=== PATIENT | male | born 1960 | race Caucasian/White ===

== ENCOUNTER → 2018-06-05 | Outpatient (CLI) | payer OTHER ==
[~2018-06-05] MED LIST: ASPI-496 PO; CELE200C PO; CLINDAMYCIN 150 MG/ML, 6ML ONE; CYAN1TAB29 PO; MAGN100T6 PO; MULT-658 PO; NAPR220C PO; VITAMIN B6 PO; [UNRECOGNIZED DRUG - CODE] PO
== END | disposition home or self-care (01) ==
LOC: STAR 08:43
PROVIDERS: ATTEND Orthopaedic Surgery
DX: Z01.818 Encounter for other preprocedural examination (principal); M19.011 Primary osteoarthritis, right shoulder; M25.511 Pain in right shoulder
CPT/HCPCS: 93005

== ENCOUNTER 2018-06-11 05:33 | Inpatient (IN) | payer OTHER ==
[2018-06-05 09:21] VITALS: BP 160/97
[~2018-06-11] VITALS: Ht 167.6 cm; Wt 70.0 kg
[~2018-06-11 05:33] MED LIST changes: -CLINDAMYCIN 150 MG/ML, 6ML ONE
[2018-06-11] MEDS ORDERED: FENTANYL PF 100 MCG/2ML ONE ×3 (06:02→09:59)
[2018-06-11] MEDS ORDERED: MIDAZOLAM 1 MG/ML, 2ML ONE (06:02)
[2018-06-11] MEDS ORDERED: LACTATED RINGERS 1,000 ML IV SCH (06:03)
[2018-06-11] MEDS ORDERED: GLYCOPYRROLATE 0.2MG/1ML, 5ML ONE (06:04)
[2018-06-11] MEDS ORDERED: SUCCINYLCHOLINE 20 MG/ML, 10ML ONE (06:04)
[2018-06-11] MEDS ORDERED: DEXAMETHASONE 4 MG/ML, 1ML ONE (06:04)
[2018-06-11] MEDS ORDERED: PROPOFOL 10 MG/ML, 20ML ONE (06:04)
[2018-06-11] MEDS ORDERED: NEOSTIGMINE 1 MG/ML, 10ML ONE (06:04)
[2018-06-11] MEDS ORDERED: CEFAZOLIN 1,000 MG ONE (06:04)
[2018-06-11] MEDS ORDERED: ONDANSETRON 2MG/ML, 2ML ONE (06:04)
[2018-06-11] MEDS ORDERED: ROCURONIUM 10MG/ML,5ML ONE (06:04)
[2018-06-11] MEDS ORDERED: D5%-0.45% NACL 1,000 ML IV SCH (06:52)
[2018-06-11] MEDS ORDERED: LIDOCAINE 4%, 4 ML SYR/CANN TP ONE (06:55)
[2018-06-11] MEDS ORDERED: EPHEDRINE 50 MG/ML, 1ML ONE (06:55)
[2018-06-11] MEDS ORDERED: BISACODYL 10 MG SUPP PR PRN (07:00)
[2018-06-11] MEDS ORDERED: DIPHENHYDRAMINE 25 MG CAPSULE PO PRN (07:00)
[2018-06-11] MEDS ORDERED: MAGNESIUM HYDROXIDE 8%, 30ML UDC PO PRN (07:00)
[2018-06-11] MEDS ORDERED: ACETAMINOPHEN 325 MG TABLET PO PRN ×2 (07:00→07:30)
[2018-06-11] MEDS ORDERED: SENNA/DOCUSATE TABLET PO PRN (07:00)
[2018-06-11] MEDS ORDERED: ONDANSETRON 2MG/ML, 2ML IV PRN ×2 (07:00→07:30)
[2018-06-11] MEDS: HYDROcodone/APAP 10/325 MG TABLET PO SCH ×3 (07:00→16:09)
[2018-06-11] MEDS ORDERED: PROMETHAZINE 25 MG/ML, 1ML IM PRN (07:00)
[2018-06-11] MEDS ORDERED: morphine SULFATE 10 MG/ML, 1ML IV PRN (07:00)
[2018-06-11] MEDS ORDERED: OXYcodone 5 MG/5 ML ORAL.SOL UDC PO PRN (07:30)
[2018-06-11] MEDS ORDERED: HYDROmorphone 1 MG/ML, 1ML IV PRN (07:30)
[2018-06-11] MEDS ORDERED: MEPERIDINE/PF 25MG/0.5ML IVPush PRN (07:30)
[2018-06-11] MEDS ORDERED: GABAPENTIN 300 MG CAPSULE PO SCH (07:30)
[2018-06-11] MEDS ORDERED: DIAZEPAM 5 MG/ML, 2ML IVPush PRN (07:30)
[2018-06-11] MEDS ORDERED: PROCHLORPERAZINE 5 MG/ML, 2ML IM PRN (07:30)
[2018-06-11] MEDS ORDERED: ONDANSETRON ODT 8 MG PO PRN (07:30)
[2018-06-11] MEDS ORDERED: DOCUSATE 100 MG CAPSULE PO SCH (09:00)
[2018-06-11] MEDS ORDERED: OXYcodone 5 MG/5 ML ORAL.SOL UDC ONE ×2 (09:39→09:40)
[2018-06-11] MEDS ORDERED: ACETAMINOPHEN 650 MG/20.3 ML UDC ONE (09:59)
[2018-06-11] MEDS: FENTANYL PF 100 MCG/2ML IV PRN ×3 (10:00→10:20)
[2018-06-11 13:19] VITALS: BP 132/80
[2018-06-11] MEDS ORDERED: CEFAZOLIN PMX 1GM/50ML 50 ML IVPB SCH (14:00)
[2018-06-12] MEDS ORDERED: ASPIRIN 81 MG TABLET EC PO SCH (06:00)
[2018-06-12] MEDS ORDERED: MAGNESIUM OXIDE 400 MG TABLET PO SCH (09:00)
== END 2018-06-11 16:33 | disposition home or self-care (01) | DRG 483 ==
LOC: ORIP 05:33 → 4NOR 10:55
PROVIDERS: ADMIT Orthopaedic Surgery; ATTEND Orthopaedic Surgery
PROC: 0LS30ZZ Reposition Right Upper Arm Tendon, Open Approach (ICD-10-PCS; 2018-06-11)
PROC: 3E0T3BZ Introduction of Anesthetic Agent into Peripheral Nerves and Plexi, Percutaneous Approach (ICD-10-PCS; 2018-06-11)
PROC: 0RRJ0JZ Replacement of Right Shoulder Joint with Synthetic Substitute, Open Approach (ICD-10-PCS; principal; 2018-06-11 07:00)
DX: M19.011 Primary osteoarthritis, right shoulder (principal); M75.21 Bicipital tendinitis, right shoulder; M81.6 Localized osteoporosis [Lequesne]
CPT/HCPCS: 73020; J3490; S0077; C1713; C1776; G0378; J0690; J1100; J2250; J2405; J2704; J2710; J3010; J0330; J7120

== ENCOUNTER 2018-06-19 15:14 | Observation (INO) | payer OTHER ==
[~2018-06-19] VITALS: Ht 167.6 cm; Wt 71.0 kg
[2018-06-19] MEDS ORDERED: SODIUM CHLORIDE FLUSH 10ML SYR IVF ONE (16:00)
[2018-06-19 16:12] LABS: BASOPHILS # (AUTO) 0.03 x10^3/uL (0-0.1); BASOPHILS % (AUTO) 0 % (0-1); EOSINOPHILS # (AUTO) 0.17 x10^3/uL (0-0.4); EOSINOPHILS % (AUTO) 2 % (1-7); LYMPHOCYTES # (AUTO) 1.53 x10^3/uL (1-3.4); LYMPHOCYTES % (AUTO) 14 % (22-44); MD NO; MEAN CORPUSCULAR HEMOGLOBIN 29.1 pg (27.5-34.5); MEAN CORPUSCULAR HGB CONC 33.3 g/dL (33.2-36.2); MEAN CORPUSCULAR VOLUME 87.4 fL (81-97); MEAN PLATELET VOLUME 7.8 fL (7.4-10.4); MONOCYTES # (AUTO) 0.98 x10^3/uL (0.2-0.8); MONOCYTES % (AUTO) 9 % (2-9); NEUTROPHILS # (AUTO) 7.94 x10^3/uL (1.8-6.8); NEUTROPHILS % (AUTO) 75 % (42-75); PLATELET COUNT 371 x10^3/uL (130-400); RED BLOOD COUNT 4.54 x10^6/uL (4.38-5.82)
[2018-06-19 16:19] LABS: ALBUMIN 3.3 g/dL (3.4-5.0); ANION GAP 7 mmol/L (5-15); CALCIUM 9.3 mg/dL (8.5-10.1); CHLORIDE 105 mmol/L (98-107); CREATININE 0.97 mg/dL (0.7-1.3)
[2018-06-19 16:24] LABS: TROPONIN I < 0.015 ng/mL (0.000-0.045)
[2018-06-19] MEDS ORDERED: OMNIPAQUE 350 MG/ML, 100ML BOTTLE ONE (17:01)
[2018-06-19] MEDS ORDERED: HYDR-3307 PO (17:47)
[2018-06-19] MEDS ORDERED: CELE200C PO (17:47)
[2018-06-19] MEDS ORDERED: DOCUSATE 100 MG CAPSULE PO PRN (18:00)
[2018-06-19] MEDS ORDERED: POLYETHYLENE GLYCOL 17 GM PACKET PO PRN (18:00)
[2018-06-19] MEDS ORDERED: ACETAMINOPHEN 325 MG TABLET PO PRN (18:00)
[2018-06-19] MEDS ORDERED: LABETALOL 5MG/ML, 20ML IVPush PRN (18:00)
[2018-06-19] MEDS ORDERED: ENALAPRILAT 1.25 MG/ML, 2ML IVPush PRN (18:00)
[2018-06-19] MEDS ORDERED: hydrALAzine 20 MG/ML, 1ML IVPush PRN (18:00)
[2018-06-19] MEDS ORDERED: BISACODYL 10 MG SUPP PR PRN (18:00)
[2018-06-19] MEDS ORDERED: HEPARIN 25,000 UNITS/500ML PMX 500 ML ONE (18:01)
[2018-06-19] MEDS ORDERED: HEPARIN 5,000 UNITS/ML, 1ML ONE (18:01)
[2018-06-19 18:04] LABS: INTERNATIONAL NORMALIZED RATIO 0.97 (0.93-1.1); PROTHROMBIN TIME 10.3 Seconds (9.6-11.5)
[2018-06-19 18:15] LABS: FREE T4 (FREE THYROXINE) 1.16 ng/dL (0.76-1.46); THYROID STIMULATING HORMONE 0.672 mIU/L (0.358-3.740)
[2018-06-19] MEDS ORDERED: HEPARIN 5,000 UNITS/ML, 1ML IV ONE (18:30)
[2018-06-19] MEDS ORDERED: HEPARIN 25,000 UNITS/500ML PMX 500 ML IV PRN (18:30)
[2018-06-19] MEDS: FAMOTIDINE 20 MG TABLET PO SCH (20:38)
[2018-06-19] MEDS: SODIUM CHLORIDE 0.9% 1,000 ML IV SCH (20:38)
[2018-06-19] MEDS: OXYcodone IR 5MG TABLET PO PRN (20:38)
[2018-06-19 23:16] VITALS: BP 136/84
[2018-06-20] MEDS: HEPARIN 5,000 UNITS/ML, 1ML IV PRN ×2 (01:34→08:33)
[2018-06-20 01:39] VITALS: BP 133/80
[2018-06-20] MEDS: OXYcodone IR 5MG TABLET PO PRN ×3 (05:53→16:14)
[2018-06-20 06:53] VITALS: BP 122/75
[2018-06-20 07:45] LABS: BASOPHILS # (AUTO) 0.04 x10^3/uL (0-0.1); BASOPHILS % (AUTO) 1 % (0-1); EOSINOPHILS # (AUTO) 0.12 x10^3/uL (0-0.4); EOSINOPHILS % (AUTO) 1 % (1-7); LYMPHOCYTES % (AUTO) 17 % (22-44); MD NO; MEAN CORPUSCULAR HEMOGLOBIN 28.6 pg (27.5-34.5); MEAN CORPUSCULAR HGB CONC 33.1 g/dL (33.2-36.2); MEAN CORPUSCULAR VOLUME 86.2 fL (81-97); MONOCYTES # (AUTO) 0.93 x10^3/uL (0.2-0.8); MONOCYTES % (AUTO) 10 % (2-9); NEUTROPHILS # (AUTO) 6.99 x10^3/uL (1.8-6.8); NEUTROPHILS % (AUTO) 72 % (42-75); PLATELET COUNT 332 x10^3/uL (130-400); RED BLOOD COUNT 4.03 x10^6/uL (4.38-5.82); RED CELL DISTRIBUTION WIDTH 13.8 % (9.4-14.8)
[2018-06-20 07:56] LABS: ALANINE AMINOTRANSFERASE 85 U/L (12-78); ALBUMIN 2.7 g/dL (3.4-5.0); ANION GAP 6 mmol/L (5-15); CALCIUM 8.8 mg/dL (8.5-10.1); CHLORIDE 108 mmol/L (98-107); CREATININE 0.81 mg/dL (0.7-1.3)
[2018-06-20 08:00] LABS: ALKALINE PHOSPHATASE 50 U/L (45-117); BILIRUBIN,TOTAL 0.5 mg/dL (0.2-1.0); CHOL/HDL RATIO 3.3; CHOLESTEROL, TOTAL 137 mg/dL (140-239); HDL CHOL % 30 % (26-37); HDL CHOLESTEROL (DIRECT) 41 mg/dL (40-60); LDL CHOLESTEROL,CALCULATED 73 mg/dL (54-169); LDL/HDL RATIO 1.8 (0.5-3.0); TOTAL PROTEIN 6.2 g/dL (6.4-8.2); TRIGLYCERIDES 115 mg/dL (50-200); VLDL CHOLESTEROL 23 mg/dL (0-25)
[2018-06-20] MEDS: FAMOTIDINE 20 MG TABLET PO SCH ×2 (08:33→08:44)
[2018-06-20] MEDS: SODIUM CHLORIDE 0.9% 1,000 ML IV SCH (09:00)
[2018-06-20] MEDS ORDERED: SENNA/DOCUSATE TABLET PO SCH (09:00)
[2018-06-20 12:34] VITALS: BP 131/78
[2018-06-20] MEDS ORDERED: RIVAROXABAN 15 MG TABLET PO SCH (17:00)
[2018-06-20] MEDS ORDERED: RIVA15TA PO ×2 (18:35→19:25)
== END 2018-06-20 18:45 | disposition home or self-care (01) ==
LOC: ED 17:57 → EDIP 17:58 → 4EST 19:11
PROVIDERS: ADMIT Hospitalist; ATTEND Hospitalist
DX: I26.99 Other pulmonary embolism without acute cor pulmonale (principal); J90 Pleural effusion, not elsewhere classified; Z80.9 Family history of malignant neoplasm, unspecified; Z96.611 Presence of right artificial shoulder joint
CPT/HCPCS: 36415; 71275; 80048; 80053; 80061; 82040; 83735; 84100; 84439; 84443; 84484; 85025; 85520; 85610; 93005; 93306; 93970; 96374; 96376; 99291; G0378; J1644; J7030; Q9967

== ENCOUNTER 2018-12-31 10:32 | Inpatient (IN) | payer OTHER ==
[~2018-12-31] VITALS: Ht 167.6 cm; Wt 68.0 kg
[~2018-12-31 10:32] MED LIST changes: +ACET325T14 PO; +BUPIVACAINE LIPOSOME/PF 10ML INFIL ONE; +CLINDAMYCIN 150 MG/ML, 6ML ONE; +DIPH25TA50 PO; +FENTANYL PF 100 MCG/2ML ONE; +HYDR-3307 PO; +MIDAZOLAM 1 MG/ML, 2ML ONE; +NAPR-816 PO; -NAPR220C PO; +NAPR220C62 PO; +RIVA15TA PO
[2018-12-31] MEDS ORDERED: BUPIVACAINE/PF 0.25% ONE (10:34)
[2018-12-31] MEDS ORDERED: LIDOCAINE-MPF 2% ,5ML ONE (10:35)
[2018-12-31] MEDS ORDERED: LACTATED RINGERS 1,000 ML IV SCH (10:55)
[2018-12-31] MEDS ORDERED: D5%-0.45% NACL 1,000 ML IV SCH (11:46)
[2018-12-31] MEDS ORDERED: morphine SULFATE 10 MG/ML, 1ML IV PRN (12:00)
[2018-12-31] MEDS ORDERED: DIPHENHYDRAMINE 25 MG CAPSULE PO PRN (12:00)
[2018-12-31] MEDS ORDERED: PROMETHAZINE 25 MG/ML, 1ML IM PRN (12:00)
[2018-12-31] MEDS ORDERED: ACETAMINOPHEN 325 MG TABLET PO PRN ×2 (12:00→14:00)
[2018-12-31] MEDS ORDERED: ONDANSETRON 2MG/ML, 2ML IV PRN ×2 (12:00→14:00)
[2018-12-31] MEDS ORDERED: KETOROLAC 30 MG/1 ML IV SCH (12:00)
[2018-12-31] MEDS ORDERED: CEFAZOLIN PMX 1GM/50ML 50 ML IVPB SCH ×2 (12:00→20:30)
[2018-12-31] MEDS ORDERED: METOCLOPRAMIDE 5 MG/ML, 2ML ONE (12:29)
[2018-12-31] MEDS ORDERED: SCOPOLAMINE PATCH, 1.5MG PATCH.TD72 TD ONE (12:36)
[2018-12-31] MEDS ORDERED: METOPROLOL 1 MG/ML, 5ML IV PRN (14:00)
[2018-12-31] MEDS ORDERED: MIDAZOLAM 1 MG/ML, 2ML IV PRN (14:00)
[2018-12-31] MEDS ORDERED: PROMETHAZINE 25 MG/ML, 1ML IV PRN (14:00)
[2018-12-31] MEDS ORDERED: FENTANYL PF 100 MCG/2ML IV PRN (14:00)
[2018-12-31] MEDS ORDERED: ALBUTEROL/IPRATROPIUM 2.5MG/0.5MG, 3 ML NPPB PRN (14:00)
[2018-12-31] MEDS ORDERED: OXYcodone 5 MG/5 ML ORAL.SOL UDC PO PRN (14:00)
[2018-12-31] MEDS ORDERED: hydrALAzine 20 MG/ML, 1ML IV PRN (14:00)
[2018-12-31] MEDS ORDERED: MEPERIDINE/PF 25MG/0.5ML IVPush PRN (14:00)
[2018-12-31] MEDS ORDERED: KETOROLAC 30 MG/1 ML IV PRN (14:00)
[2018-12-31] MEDS ORDERED: HYDROmorphone 2 MG/ML, 1ML IVPush PRN (14:00)
[2018-12-31] MEDS ORDERED: DEXAMETHASONE 4 MG/ML, 1ML ONE (14:07)
[2018-12-31] MEDS ORDERED: ONDANSETRON 2MG/ML, 2ML ONE (14:07)
[2018-12-31] MEDS ORDERED: ROCURONIUM 10MG/ML,5ML ONE (14:07)
[2018-12-31] MEDS ORDERED: GLYCOPYRROLATE 0.2MG/1ML, 5ML ONE (14:07)
[2018-12-31] MEDS ORDERED: PROPOFOL 10 MG/ML, 20ML ONE (14:07)
[2018-12-31] MEDS ORDERED: NEOSTIGMINE 1 MG/ML, 10ML ONE (14:07)
[2018-12-31] MEDS ORDERED: CEFAZOLIN 1,000 MG ONE (14:07)
[2018-12-31] MEDS ORDERED: OXYcodone 5 MG/5 ML ORAL.SOL UDC ONE (14:58)
[2018-12-31] MEDS ORDERED: OXYcodone IR 5MG TABLET PO SCH (15:00)
[2018-12-31 15:35] VITALS: BP 144/89
[2018-12-31 18:00] VITALS: BP 133/79
[2018-12-31] MEDS ORDERED: DOCUSATE 100 MG CAPSULE PO SCH (21:00)
[2018-12-31] MEDS ORDERED: RIVAROXABAN 10 MG TABLET PO SCH (21:00)
== END 2018-12-31 18:30 | disposition home or self-care (01) | DRG 483 ==
LOC: ORIP 10:32 → 4NOR 15:30
PROVIDERS: ADMIT Orthopaedic Surgery; ATTEND Orthopaedic Surgery
PROC: 0LS40ZZ Reposition Left Upper Arm Tendon, Open Approach (ICD-10-PCS; 2018-12-31)
PROC: 3E0T3BZ Introduction of Anesthetic Agent into Peripheral Nerves and Plexi, Percutaneous Approach (ICD-10-PCS; 2018-12-31)
PROC: 3E0T33Z Introduction of Anti-inflammatory into Peripheral Nerves and Plexi, Percutaneous Approach (ICD-10-PCS; 2018-12-31)
PROC: 0RRK0JZ Replacement of Left Shoulder Joint with Synthetic Substitute, Open Approach (ICD-10-PCS; principal; 2018-12-31 13:00)
DX: M19.012 Primary osteoarthritis, left shoulder (principal); M65.812 Other synovitis and tenosynovitis, left shoulder; M75.22 Bicipital tendinitis, left shoulder; M25.712 Osteophyte, left shoulder; Z79.899 Other long term (current) drug therapy
CPT/HCPCS: 73020; J3490; S0077; 93005; C1713; C1776; G0378; J0690; J1100; J2250; J2405; J2704; J2710; J3010; J2765; J7120

== ENCOUNTER 2021-03-06 15:47 | Emergency (ER) | payer OTHER ==
[~2021-03-06] VITALS: Ht 167.6 cm; Wt 69.2 kg
[~2021-03-06 15:47] MED LIST changes: -BUPIVACAINE LIPOSOME/PF 10ML INFIL ONE; -CLINDAMYCIN 150 MG/ML, 6ML ONE; -FENTANYL PF 100 MCG/2ML ONE; +HYDR-3248 PO; -HYDR-3307 PO; -MIDAZOLAM 1 MG/ML, 2ML ONE
[2021-03-06 17:04] LABS: BASOPHILS % (AUTO) 1 % (0-1); EOSINOPHILS % (AUTO) 2 % (1-7); LYMPHOCYTES % (AUTO) 21 % (22-44); MEAN CORPUSCULAR HEMOGLOBIN 28.9 pg (27.5-34.5); MEAN CORPUSCULAR HGB CONC 33.1 g/dL (33.2-36.2); MEAN PLATELET VOLUME 8.4 fL (7.4-10.4); MONOCYTES % (AUTO) 10 % (2-9); NEUTROPHILS % (AUTO) 66 % (42-75); PLATELET COUNT 266 x10^3/uL (130-400); RED BLOOD COUNT 5.24 x10^6/uL (4.38-5.82); RED CELL DISTRIBUTION WIDTH 15.3 % (9.4-14.8)
[2021-03-06 17:14] LABS: ALANINE AMINOTRANSFERASE 25 U/L (12-78); ALBUMIN 3.6 g/dL (3.4-5.0); ANION GAP 6 mmol/L (5-15); CALCIUM 8.4 mg/dL (8.5-10.1); CHLORIDE 112 mmol/L (98-107); CREATININE 1.12 mg/dL (0.7-1.3)
--- NOTE | 2021-03-06 17:16 | NUR ---
MERCEDES. PT LAYING IN BED WATCHING TV. NO RESPIRATORY DISTRESS. WILL CONTINUE TO MONITOR PT.
[2021-03-06 17:18] LABS: ALKALINE PHOSPHATASE 46 U/L (45-117); BILIRUBIN,TOTAL 0.5 mg/dL (0.2-1.0); TOTAL PROTEIN 7.1 g/dL (6.4-8.2); TROPONIN I < 0.015 ng/mL (0.000-0.045)
--- NOTE | 2021-03-06 18:13 | NUR ---
PT TO CT AT THIS TIME.
[2021-03-06] MEDS ORDERED: OMNIPAQUE 350 MG/ML, 100ML BOTTLE ONE (18:35)
--- NOTE | 2021-03-06 18:39 | NUR ---
ROHAN. VSS. WILL CONTINUE TO MONITOR
[2021-03-06 18:44] VITALS: BP 144/68
--- NOTE | 2021-03-06 18:58 | NUR ---
CARE TRANSFERED REPORT GIVEN TO EDWIN PAULA
[2021-03-06] MEDS ORDERED: RIVAROXABAN 10 MG TABLET ONE (19:24)
[2021-03-06] MEDS ORDERED: RIVAROXABAN 15 MG TABLET PO ONE (19:30)
--- NOTE | 2021-03-06 19:47 | NUR ---
Patient/Caregiver given discharge instructions and they have confirmed that they understand the instructions. Patient ambulatory with steady gait. NAD, all questions answered appropriately, denies additional needs at this time. No personal belongings left in room after discharge.
== END 2021-03-06 19:48 | disposition home or self-care (01) ==
LOC: ED 19:40
DX: I26.99 Other pulmonary embolism without acute cor pulmonale (principal); R06.00 Dyspnea, unspecified; R94.31 Abnormal electrocardiogram [ECG] [EKG]
CPT/HCPCS: 36415; 71275; 80053; 83880; 84484; 85025; 85379; 93005; 99285; Q9967